=== PATIENT | female | born 1980 | race Caucasian/White ===

== ENCOUNTER 2019-02-12 20:42 | Emergency (ER) | payer MEDICAID ==
[~2019-02-12] VITALS: Ht 154.9 cm; Wt 86.2 kg
[2019-02-12 20:42] VITALS: BP 132/86
[2019-02-12] MEDS ORDERED: LIDOCAINE WITH 8.4% SOD BICARB 3 ML DISP.SYRIN. INJ ONE (22:30)
[2019-02-12] MEDS ORDERED: DIPHTH,PERTUSS(ACELL),TET TOX 0.5 ML DISP.SYRIN. VAX IM ONE (22:30)
[2019-02-12] MEDS ORDERED: HYDROcodone/APAP 5/325MG 1 TAB TABLET PO ONE (22:30)
[2019-02-12] MEDS ORDERED: SULF1TAB23 PO (22:46)
--- NOTE | 2019-02-12 22:46 | PHYS DOC ---
Past Medical History Past Medical History: Anxiety, High Cholesterol, Hypertension, Other Additional Past Medical Histor: VIT D DEFICIENCY, "PRE-DIABETES" Past Surgical History: Appendectomy, Cholecystectomy, Hysterectomy Alcohol Use: Occasionally Drug Use: None Adult General Chief Complaint Chief Complaint: ABSCESS HPI HPI Patient is a 38 year old female who presents with left groin abscess that began 2 days ago. Patient states she has history of abscesses. Denies any fever. Review of Systems Review of Systems Constitutional: Denies fever or chills [] Musculoskeletal: Denies back pain or joint pain [] Integument: Reports left groin abscess Neurologic: Denies headache, focal weakness or sensory changes [] All other systems were reviewed and found to be within normal limits, except as documented in this note. Current Medications Current Medications Current Medications Medications (Trade) Dose Ordered Sig/Scotty Start Time Stop Time Status Last Admin Dose Admin Acetaminophen/ Hydrocodone Bitart (Lortab 5/325) 2 tab 1X ONCE 02/12/19 22:30 02/12/19 22:31 DC 02/12/19 22:06 2 TAB Diphtheria/ Tetanus/Acell Pertussis (Boostrix) 0.5 ml ONCE ONCE 02/12/19 22:30 02/12/19 22:31 DC 02/12/19 22:08 0.5 ML Lidocaine/Sodium Bicarbonate (Buffered Lidocaine 1%) 3 ml 1X ONCE 02/12/19 22:30 02/12/19 22:31 DC 02/12/19 22:08 3 ML Allergies Allergies Allergies Coded Allergies Type Severity Reaction Last Updated Verified morphine Allergy Intermediate Rash 02/12/19 Yes Physical Exam Physical Exam Constitutional: Well developed, well nourished, no acute distress, non-toxic appearance. [] Skin: Warm, dry, left groin/inner thigh with an indurated area approximately the size of a quarter. The area is firm and her to touch warm, no fluctuance. Back: No tenderness, no CVA tenderness. [] Extremities: No tenderness, no cyanosis, no clubbing, ROM intact, no edema. [] Neurologic: Alert and oriented X 3, normal motor function, normal sensory fu nction, no focal deficits noted. [] Psychologic: Affect normal, judgement normal, mood normal. [] Current Patient Data Vital Signs Vital Signs Date Time Temp Pulse Resp B/P (MAP) Pulse Ox O2 Delivery O2 Flow Rate FiO2 02/12/19 22:06 16 97 Room Air 02/12/19 20:42 98.5 98 132/86 (101) 98.5 EKG EKG [] Radiology/Procedures Radiology/Procedures Indication: abscess left groin Procedure: The patient was positioned appropriately. Local anesthesia was 1% buffered lidocaine. 18-gauge needle was used to aspirate the center of this lesion, approximately 2 mL of yellow bloody material was aspirated, an incision was then made over the apex of the lesion with an 11 blade and small amount of yellow bloody material was expressed. The drainage cavity was irrigated and covered with sterile gauze. The patients tetanus status updated as needed. The patient tolerated the procedure well. Complications: none.[] Course & Med Decision Making Course & Med Decision Making Pertinent Labs and Imaging studies reviewed. (See chart for details) This is a 38-year-old female patient presenting with an abscess on the left groin that was drained a me tetanus updated. Discharged on Bactrim. Wound care instructions and return precautions provided. Dragon Disclaimer Dragon Disclaimer This electronic medical record was generated, in whole or in part, using a voice recognition dictation system. Departure Departure Impression: Primary Impression: Abscess of left groin Disposition: HOME, SELF-CARE Condition: STABLE Referrals: SMITH ALEXANDER MD (PCP) Follow-up in 1-2 weeks Patient Instructions: Abscess, Care After Additional Instructions: You have an abscess on the left groin that was drained in the emergency room. Continue applying warm compresses to the area. Take the prescribed antibiotics until completed. Follow-up with your doctor in 1-2 weeks. Come back to the ED at any point symptoms worsen. Scripts Sulfamethoxazole/Trimethoprim (BACTRIM 400-80 MG TABLET) 1 Each Tablet 1 TAB PO BID, #20 TAB Prov: MARY MANJARREZ APRN 02/12/19 MARY MANJARREZ APRN Feb 12, 2019 22:46
== END 2019-02-12 22:50 | disposition home or self-care (01) ==
LOC: ER 20:42
DX: L02.214 Cutaneous abscess of groin (principal); E78.00 Pure hypercholesterolemia, unspecified; I10 Essential (primary) hypertension; Z90.49 Acquired absence of other specified parts of digestive tract; Z90.710 Acquired absence of both cervix and uterus; Z90.89 Acquired absence of other organs; Z88.5 Allergy status to narcotic agent
CPT/HCPCS: 10060; 10160; 90471; 90715; 99283; 99284